=== PATIENT | male | born 1970 | race Hispanic/Latino ===

== ENCOUNTER 2017-08-31 05:44 | Emergency (ER) | payer OTHER ==
[~2017-08-31] VITALS: Ht 177.8 cm; Wt 105.2 kg
--- OUTSIDE RECORDS SUMMARY | 2017-08-31 05:47 | XMS REPORT | Clinical Summary ---
Author Author [facility] Organization [facility] Address Unknown Phone Unavailable Care Team Providers [employer] Name Role Phone Asked, Pcp PCP Unavailable Allergies No Known Allergies Current Medications Prescription Sig. Disp. Refills Start End Date Status Date escitalopram (LEXAPRO) 10 Take 1 tablet (10 mg 90 tablet 0 07/10/19 10/08/19 Active MG tablet total) by mouth daily for 18 18 90 days. lacosamide (VIMPAT) 150 Take 1 tablet (150 mg 30 tablet 5 08/24/19 02/20/20 Active mg tablet total) by mouth daily for 18 18 180 days. OXcarbazepine (TRILEPTAL) Take 0.5 tablets (300 mg 30 tablet 11 11/15/19 Discontin 600 MG tablet total) by mouth 2 (two) 16 17 ued times a day. escitalopram (LEXAPRO) 10 Take 1 tablet (10 mg 30 tablet 5 03/28/20 10/07/19 Discontin MG tablet total) by mouth daily. 16 17 ued lacosamide (VIMPAT) 150 Take 1 tablet (150 mg 60 tablet 5 05/14/19 11/11/19 mg tablet total) by mouth 2 (two) 17 17 times a day for 180 days. escitalopram (LEXAPRO) 10 TAKE 1 TABLET BY MOUTH 30 tablet 0 10/10/19 11/15/19 Discontin MG tablet DAILY 17 17 ued escitalopram (LEXAPRO) 10 Take 1 tablet (10 mg 30 tablet 5 11/15/19 05/05/19 Discontin MG tablet total) by mouth daily for 17 18 ued 180 days. lacosamide (VIMPAT) 150 Take 1 tablet (150 mg 60 tablet 5 11/15/19 12/11/19 Discontin mg tablet total) by mouth 2 (two) 17 17 ued times a day for 180 days. lacosamide (VIMPAT) 150 Take 1 tablet (150 mg 180 tablet 1 12/13/19 06/10/19 mg tablet total) by mouth 2 (two) 17 18 times a day for 180 days. escitalopram (LEXAPRO) 10 Take 1 tablet (10 mg 90 tablet 1 05/06/19 07/07/19 Discontin MG tablet total) by mouth daily for 18 18 ued 180 days. lacosamide (VIMPAT) 150 Take 150 mg by mouth 08/24/19 Discontin mg tablet once. 18 ued levETIRAcetam XR (KEPPRA Take 2 tablets (1,000 mg 60 tablet 11 08/24/19 Discontin XR) 500 mg 24 hr tablet total) by mouth daily. 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 Office Visit Neurology Gary Gray MD Cryptogenic partial complex epilepsy (Primary Dx) 08/14/2017 Refill Neurology Gary Gray MD 07/06/2017 Refill Neurology Gary Gray MD 05/13/2017 Telephone Neurology Ana M Lunsford RN 05/05/2017 Refill Neurology Gary Gray MD 04/08/2017 Telephone Neurology Ana M Lunsford RN 04/02/2017 Refill Neurology Gary Gray MD 12/10/2016 Refill Neurology Gary Gray MD 11/14/2016 Refill Neurology Ana M Lunsford RN 10/06/2016 Refill Neurology Gary Gray MD after 08/30/2016 Family History Medical History Relation Name Comments Heart disease Father No Known Problems Mother Relation Name Status Comments Father Mother Alive Social History Tobacco Use Types Packs/Day Years Used Date Never Smoker Smokeless Tobacco: Never Used Alcohol Use Drinks/Week oz/Week Comments No Sex Assigned at Date Recorded Not on file Last Filed Vital Signs Vital Sign Reading Time Taken Blood Pressure 138/89 08/14/2017 1:03 PM CDT Pulse 77 08/14/2017 1:03 PM CDT Temperature - - Respiratory Rate - - Oxygen Saturation - - Inhaled Oxygen - - Concentration Weight 106 kg (233 lb 14.4 oz) 08/14/2017 1:03 PM CDT Height 170.2 cm (5' 7") 08/14/2017 1:03 PM CDT Body Mass Index 36.63 08/14/2017 1:03 PM CDT Plan of Treatment Date Type Specialty Care Team Description 02/12/2018 Office Visit Neurology Gary Gray MD [id number] [address] Health Maintenance Due Date Last Done Comments INFLUENZA VACCINE 11/20/2017 Results * CBC with platelet and differential (08/14/2017 1:52 PM) Component Value Ref Range WBC 8.1 3.4 - 10.8 x10E3/uL RBC 5.00 4.14 - 5.80 x10E6/uL HGB 15.2 13.0 - 17.7 g/dL HCT 44.7 37.5 - 51.0 % MCV 89 79 - 97 fL MCH 30.4 26.6 - 33.0 pg MCHC 34.0 31.5 - 35.7 g/dL RDW 13.3 12.3 - 15.4 % Platelet count 296 150 - 379 x10E3/uL Neutrophils 57 Not Estab. % Lymphocytes 32 Not Estab. % Monocytes 8 Not Estab. % Eosinophils 3 Not Estab. % Basophils 0 Not Estab. % Neutrophils, absolute 4.5 1.4 - 7.0 x10E3/uL Lymphocytes, absolute 2.6 0.7 - 3.1 x10E3/uL Monocytes, absolute 0.7 0.1 - 0.9 x10E3/uL Eosinophils, absolute 0.3 0.0 - 0.4 x10E3/uL Basophils, absolute 0.0 0.0 - 0.2 x10E3/uL Immature granulocytes 0 Not Estab. % Immature grans (abs) 0.0 0.0 - 0.1 x10E3/uL Specimen Performing Laboratory Blood [facility] Narrative Performed at:01 - [facility] [id number] Leasing Coordinator: Baljit Cisneros MD, Phone:[phone] * Comprehensive metabolic panel (08/14/2017 1:52 PM) Component Value Ref Range Glucose 224 (H) 65 - 99 mg/dL BUN, whole blood 8 6 - 24 mg/dL Creatinine 1.18 0.76 - 1.27 mg/dL EGFR Non-Afr. Albanian 74 >59 mL/min/1.73 EGFR 86 >59 mL/min/1.73 BUN/creatinine ratio 7 (L) 9 - 20 Sodium 141 134 - 144 mmol/L Potassium 4.0 3.5 - 5.2 mmol/L Chloride 99 96 - 106 mmol/L CO2 27 18 - 29 mmol/L Calcium 9.4 8.7 - 10.2 mg/dL Protein 6.9 6.0 - 8.5 g/dL Albumin, S 4.0 3.5 - 5.5 g/dL Globulin, total 2.9 1.5 - 4.5 g/dL Albumin/globulin ratio 1.4 1.2 - 2.2 Total bilirubin 0.5 0.0 - 1.2 mg/dL Alkaline phosphatase 87 39 - 117 IU/L AST 95 (H) 0 - 40 IU/L ALT 88 (H) 0 - 44 IU/L Specimen Performing Laboratory Blood [facility] Narrative Performed at: - [facility] [id number] Leasing Coordinator: Baljit Cisneros MD, Phone:[phone] after 08/30/2016 Insurance Payer Benefit Subscriber ID Type Phone Address Plan / Group [facility] xxxxxxxxx [facility] INDEMNITY Home:
--- NOTE | 2017-08-31 07:08 | Discharge Summary ---
DICK CONNELL, LENGTH 25:7 MARINO TERRAZAS MD Job#: [id number] [place]
[2017-08-31 08:47] VITALS: BP 141/98
== END 2017-08-31 06:52 | disposition home or self-care (01) ==
LOC: ER 05:44
DX: F41.1 Generalized anxiety disorder (principal); G40.909 Epilepsy, unspecified, not intractable, without status epilepticus; R60.9 Edema, unspecified
CPT/HCPCS: 93005; 99283